=== PATIENT | male | born 1950 | race Hispanic/Latino ===

== ENCOUNTER 2020-12-12 10:02 | Inpatient (IN) | payer BC, MEDICARE ==
[2020-12-12 10:29] VITALS: BMI 32.3
[2020-12-12] MEDS ORDERED: Communication Order-Pharmacy FS ONE (12:24)
[2020-12-12] MEDS ORDERED: Diazepam 5 MG TAB PO PRN (12:24)
--- NOTE | 2020-12-12 12:51 | HP ---
REASON FOR ADMISSION: Multivessel coronary artery disease. HISTORY OF PRESENT ILLNESS: Mr. Kang is a very pleasant 70-year-old gentleman, who actually came to the office last month for preoperative evaluation. He was scheduled to have knee surgery on December 04. He voiced having to stop doing his treadmill run about 2 years ago, as he was starting to get more short of breath and did not like the sensation, so he eventually just stopped doing it. He states he gets short of breath with exertion. No chest pain, tightness, or pressure. He underwent an echocardiogram, which showed an EF of 45% to 50% with inferior hypokinesis. Otherwise, no major valvular abnormality. He also had a stress test, which showed inferior reversible defect with reduced EF, so his surgery was postponed and he was recommended to undergo heart catheterization. He underwent this procedure this morning through the right radial approach and he was found to have significant left main disease, ostial LAD, significant ostial left circumflex, and an occluded RPDA filling from [id number] collaterals. His LV function seemed to be about 50% on the LV Gram. Given the severity of his disease and the possibility of becoming unstable and the need for bypass surgery, he was transferred over as an inpatient to [place] for evaluation by Cardiothoracic Surgery and consideration of coronary artery bypass grafting. Mr. Kang currently denies any chest pain, tightness, pressure. PAST MEDICAL HISTORY: 1. Coronary artery disease, just newly diagnosed as above. 2. Hypertension. 3. Hyperlipidemia. PAST SURGICAL HISTORY: None. FAMILY HISTORY: Two brothers, four sisters, and two sons healthy. Mother and father both . SOCIAL HISTORY: No alcohol, tobacco, or drugs. ALLERGIES: NO KNOWN DRUG ALLERGIES. OUTPATIENT MEDICATIONS: 1. Amlodipine 5 mg a day. 2. Pravastatin 10 mg q.h.s. 3. Aspirin 81 a day. 4. Naproxen p.r.n. REVIEW OF SYSTEMS: A 12-point review of systems was done and was found to be negative other than stated in the History of Present Illness. PHYSICAL EXAMINATION: VITAL SIGNS: Temperature 97.2, pulse 74, respiratory rate 20, saturating 98% on room air, blood pressure 122/80. He is 5 feet 7 inches tall and he weighs 85 kg. GENERAL: Awake, alert, oriented x3, in no distress. HEENT: Normocephalic and atraumatic. NECK: Supple. LUNGS: Clear. CARDIOVASCULAR: S1, S2. No S3 or S4. No murmurs. ABDOMEN: Soft. Positive bowel sounds. EXTREMITIES: No edema. SKIN: Warm and dry. LABORATORY DATA: Laboratory work was reviewed. ASSESSMENT/PLAN: 1. Multivessel coronary artery disease. 2. Ischemic cardiomyopathy with an ejection fraction about 45% to 50%. 3. No major valvular abnormality and no history of atrial fibrillation. PLAN: 1. Continue home regimen. 2. Consult Cardiothoracic Surgery for consideration of coronary artery bypass grafting. 3. Lovenox subcu for DVT prophylaxis. 4. PPI for stress ulcer prophylaxis. 5. Disposition pending evaluation by surgery. 6. Full code. Job ID: [id number]
[2020-12-12 13:03] LABS: #Basophils 0.1 thou/uL (0.0-0.2); #Eosinphils 0.1 thou/uL (0.0-0.7); #Lymphocytes 1.4 thou/uL (1.20-3.40); #Monocytes 0.6 thou/uL (0.11-0.59); #Neutrophils 5.6 thou/uL (1.40-6.50); %Basophils 0.8 % (0.0-1.0); %Eosinophils 1.1 % (0.0-10.0); %Lymphocytes 18.4 % (21.0-51.0); %Monocytes 7.9 % (0.0-10.0); %Neutrophils 71.8 % (42.0-75.0); Hemoglobin 15.2 g/dL (14.0-18.0); Hemoglobin A1c 5.6 % (4.0-6.0); Mean Corpuscular HGB CONC 30.9 g/dL (32.0-36.0); Mean Corpuscular Hemoglobin 28.9 pg (27.0-31.0); Mean Corpuscular Volume 93.3 fL (78.0-98.0); Mean Platelet Volume 9.1 fL (7.4-10.4); Platelet Count 207 thou/uL (130-400); RBC Distribution Width 12.3 % (11.5-14.5); Red Blood Cell (RBC) Count 5.26 mill/uL (4.70-6.10); White Blood Cell (WBC) Count 7.7 thou/uL (4.8-10.8)
--- NOTE | 2020-12-12 13:05 | RAD ---
Exam: Chest one view HISTORY:Preprocedure chest radiograph. Patient is scheduled for open heart surgery. Comparison: 09/06/2016 FINDINGS: Cardiac silhouette: Normal Aorta: Unremarkable Pulmonary vessels: Normal Costophrenic angles: Clear LUNGS: No masses or consolidation. Pneumothorax: None Osseous abnormalities: None IMPRESSION: No acute cardiopulmonary process.
[2020-12-12 13:24] LABS: Anion Gap 13 mmol/L (10-20); BUN (Urea Nitrogen) 13 mg/dL (8.4-25.7); Calc. Creatinine Clearance 94 mL/min (70-130); Carbon Dioxide 25 mmol/L (23-31); Chloride 103 mmol/L (98-107); Glucose 106 mg/dL (80-115); Potassium 4.1 mmol/L (3.5-5.1); Sodium 137 mmol/L (136-145)
--- NOTE | 2020-12-12 13:41 | CON ---
DATE OF CONSULTATION: 12/12/2020 REASON FOR CONSULTATION: Evaluate the patient for coronary artery bypass grafting. CONSULTING PHYSICIAN: Ranjith Morrissey MD HISTORY OF PRESENT ILLNESS: Mr. Kang is a 70-year-old gentleman, who was seen for right knee pain and need right knee surgery. Preoperative clearance was requested from Dr. Morrissey. The patient had an abnormal EKG and subsequently underwent stress testing, which was again abnormal. He underwent cardiac catheterization today at the [facility] revealing critical left main disease with approximately 50% to 60% right coronary stenosis. He has collateralization of his posterolateral through his LAD. PDA is chronically occluded. Ejection fraction on ventriculogram is approximately 60%. PAST MEDICAL HISTORY: Hypertension. PAST SURGICAL HISTORY: None. CURRENT MEDICATIONS: 1. Naproxen 500 mg b.i.d. 2. Pravastatin 20 mg at bedtime. 3. Aspirin 81 mg daily. 4. Amlodipine 5 mg daily. ALLERGIES: NONE. SOCIAL HISTORY: He does not use tobacco. He is retired and plays a lot of golf. REVIEW OF SYSTEMS: A 10-point review of systems is performed, is negative except as above. PHYSICAL EXAMINATION: GENERAL: This is a well-developed, well-nourished male, resting comfortably on the telemetry unit. VITAL SIGNS: Height 5 feet and 6 inches and weight is 200 pounds. Temperature is 98.5, pulse is 61 and regular - he is in normal sinus rhythm on telemetry. Blood pressure is 170/79. HEENT: Sclerae nonicteric. Pupils equal and round bilaterally. NECK: Supple. He has no carotid bruit. He has no adenopathy. CHEST: Clear bilaterally. HEART: Rhythm is regular without murmur. ABDOMEN: Soft and nontender. EXTREMITIES: No edema. VASCULAR: Palpable carotid, radial, femoral, and posterior tibial pulses bilaterally. VENOUS: There is no venous varicosities or venous stasis changes. PSYCHIATRIC: He is awake, alert, and oriented to person, place, and time. ASSESSMENT AND PLAN: This is a pleasant 70-year-old gentleman with critical left main stenosis. He also has some stenosis in his right coronary with an occluded PDA. I never ever see the PDA fill on his films. Posterolateral and distal right coronary artery are bypassable targets. Risks, benefits, and options to coronary artery bypass grafting was discussed with him. Target bypass included left anterior descending, obtuse marginal, and distal right. Job ID: [id number]
[2020-12-12 17:26] LABS: SARS-CoV-2 MS2 Positive; SARS-CoV-2 N Gene Negative; SARS-CoV-2 S Gene Negative; SARS-CoV-2 by NAA Not Detected (NotDetected); SARS-CoV-2 orf1ab Negative
[2020-12-12] MEDS ORDERED: Simvastatin 10 MG TAB PO SCH (21:00)
[2020-12-13] MEDS ORDERED: Bupivacaine PF 0.5% 30 ML VIAL ONE (06:34)
[2020-12-13] MEDS ORDERED: EPINEPHrine 1 MG/ML AMP ONE (06:34)
[2020-12-13] MEDS ORDERED: Dexamethasone 4 mg/ml Vial ONE (06:34)
[2020-12-13] MEDS ORDERED: Albumin 5% 500 ML ONE (06:34)
[2020-12-13] MEDS ORDERED: Heparin 10,000 UNITS/1 ML VIAL 30,000 UNITS in Sodium Chloride 0.9% 1,000 ML FS SCH (06:45)
[2020-12-13] MEDS ORDERED: Midazolam HCl 5 mg/5 ml Vial ONE (06:50)
[2020-12-13] MEDS ORDERED: Fentanyl 250 MCG/5 ML VIAL ONE (06:50)
[2020-12-13] MEDS ORDERED: Dexmedetomidine 200 MCG/2 ML VIAL ONE (06:50)
[2020-12-13] MEDS ORDERED: Midazolam HCl 2 mg/2 ml Vial ONE (07:12)
[2020-12-13] MEDS ORDERED: Ondansetron ODT 4 MG TAB ONE (07:12)
[2020-12-13] MEDS ORDERED: CEFAZOLIN 2 GM in Premix Bag 1 BAG IVPB SCH (07:30)
[2020-12-13] MEDS ORDERED: Aspirin Chewable 81 MG TAB PO SCH (09:00)
[2020-12-13] MEDS ORDERED: Amlodipine 5 MG TAB PO SCH (09:00)
[2020-12-13] MEDS ORDERED: Insulin Regular 300 UNITS/3 ML VIAL ONE (09:57)
--- NOTE | 2020-12-13 11:44 | OP ---
DATE OF PROCEDURE: 12/13/2020 PREOPERATIVE DIAGNOSES: Coronary artery disease/hypertension/dyslipidemia. POSTOPERATIVE DIAGNOSES: Coronary artery disease/hypertension/dyslipidemia. PROCEDURES: Coronary artery bypass grafting x3, 1. Left internal mammary artery to 2.0 mm LAD, good conduit and target. 2. Reverse saphenous vein to 2.0 mm OM, good conduit and target. 3. Reverse saphenous vein to 4.0 mm RCA, good conduit and target. INCUBATOR OPERATOR: Clayton Siddiqui MD ANESTHESIA: General endotracheal, Dr. Faizan Bhat. PUMP TIME: 50 minutes. CROSS-CLAMP TIME: 29 minutes. LOW-CORE TEMPERATURE: 34 degrees Celsius. MEDICAL OFFICE ASST: Ashtyn Church. DRAINS: 24-Congolese chest tubes x2. DRIPS: None. TRANSFUSIONS: None. DESCRIPTION OF PROCEDURE: After appropriate consent was obtained, the patient was brought to the operating room and placed in supine position on the operating table. Appropriate central line and monitors were placed and general endotracheal anesthesia was induced. Chest, abdomen, and legs were prepped and draped in usual sterile fashion. Greater saphenous vein was harvested from the left thigh utilizing endoscopic technique. Wounds were irrigated and closed in layers. Median sternotomy was performed. Left internal mammary artery was harvested as a pedicle graft. The patient was systemically heparinized. Distal pedicle was divided and infused with papaverine. Thymic fat and pericardium were divided with electrocautery. Pericardial stay sutures were placed. Aortic and atrial cannulation was performed. After adequate heparinization, retrograde prime was performed. The patient was placed on cardiopulmonary bypass. Distal targets were marked. Aortic cross-clamp was applied and antegrade sanguineous cardioplegic arrest was obtained. 1 L of antegrade cold [place] cardioplegia was given. Topical cold solution was used. Reverse saphenous vein was anastomosed to distal RCA in end-to-side fashion with running 7-0 Prolene suture. Anastomosis was tested and was hemostatic. Reverse saphenous vein was anastomosed to the OM in end-to-side fashion with running 7-0 Prolene suture. Anastomosis was tested and was hemostatic. Mammary artery was brought through a window in the pericardium and anastomosed to the proximal LAD. On release of mammary clamps, good hooding of the anastomosis and good distal flow. Pedicle was secured with interrupted 6-0 Prolene suture. Cross-clamp was removed and partial occluding clamp was placed. Saphenous veins were anastomosed to individual punch sites in the aorta with running 6-0 Prolene suture. Partial occluding clamp was removed and graft was deaired. Anastomoses were inspected for hemostasis, which was good. The patient was warmed and weaned from cardiopulmonary bypass. After resumption of sinus rhythm, good hemodynamics, and temperature greater than 36.5, bypass was discontinued. Transfusion was given. 24-Congolese chest tubes were placed in the mediastinum. Decannulation was performed and pursestring suture secured. Protamine was administered. After adequate hemostasis had been obtained, sternum was treated with Vancomycin paste. The sternum was then closed with #7 wire. Sternum was treated withplatelet-rich plasma, wires were twisted and buried. Wounds were irrigated and treated with platelet poor plasma and closed in multiple layers. Needle, sponge, and instrument counts were all reported as correct at the end of the procedure. The patient tolerated the procedure well, was awakened, extubated, and transferred to the intensive care unit in stable condition. Job ID: [id number] [facility]
[2020-12-13] MEDS ORDERED: Aminocaproic Acid 5 GM/20 ML VIAL ONE (12:14)
[2020-12-13] MEDS ORDERED: Ondansetron PF 4 MG/2 ML Vial ONE (12:14)
[2020-12-13] MEDS ORDERED: Thrombin 5000 UNITS/5 ML VIAL ONE (12:14)
[2020-12-13] MEDS ORDERED: Lidocaine 1% PF 5 ML VIAL ONE (12:14)
[2020-12-13] MEDS ORDERED: Heparin 30,000 units/30 ml VIAL ONE (12:14)
[2020-12-13] MEDS ORDERED: Lidocaine 2% PF 100 mg/5 ml Syringe ONE (12:14)
[2020-12-13] MEDS ORDERED: Vecuronium 10 MG VIAL ONE (12:14)
[2020-12-13] MEDS ORDERED: Nitroglycerin 50 MG/250 ML BOT ONE (12:14)
[2020-12-13] MEDS ORDERED: Glycopyrrolate 0.2 MG/ML 5 ML SYRINGE ONE (12:14)
[2020-12-13] MEDS ORDERED: Cardioplegic Soln 1,000 ML BAG ONE (12:14)
[2020-12-13] MEDS ORDERED: Potassium Chloride 60 MEQ/30 ML VIAL ONE (12:14)
[2020-12-13] MEDS ORDERED: Magnesium Sulfate 1 GM/2 ML VIAL ONE (12:14)
[2020-12-13] MEDS ORDERED: Sodium Bicarb 50 MEQ/50 ML Abboject 8.4% SYRINGE ONE (12:14)
[2020-12-13] MEDS ORDERED: PROPOFOL 200 MG/20 ML VIAL ONE (12:14)
[2020-12-13] MEDS ORDERED: Heparin 5,000 UNITS/ML VIAL ONE (12:14)
[2020-12-13] MEDS ORDERED: Norepinephrine 4 MG/4 ML VIAL ONE (12:14)
[2020-12-13] MEDS ORDERED: Papaverine 60 MG/2 ML VIAL ONE (12:14)
[2020-12-13] MEDS ORDERED: Protamine Sulfate 250 MG/25 ML VIAL ONE (12:14)
[2020-12-13] MEDS ORDERED: Dexamethasone 20 MG/5 ML VIAL ONE (12:14)
[2020-12-13] MEDS ORDERED: Mannitol 12.5 GM/50 ML ONE (12:14)
[2020-12-13] MEDS ORDERED: Calcium Chloride 1 GM/10 ML Abboject SYRINGE ONE (12:14)
[2020-12-13] MEDS ORDERED: Potassium Chloride 20 MEQ/100 ML PREMIX BAG IVPB PRN (12:17)
[2020-12-13] MEDS ORDERED: Fentanyl 100 MCG/2 ML VIAL SLOW IVP PRN ×2 (12:17)
[2020-12-13] MEDS ORDERED: Morphine 2 MG/ML VIAL SLOW IVP PRN (12:17)
[2020-12-13] MEDS ORDERED: Ondansetron PF 4 MG/2 ML Vial IVP PRN (12:17)
[2020-12-13] MEDS ORDERED: HYDROcodone/Acetaminophen 5/325 mg Tablet PO PRN (12:17)
[2020-12-13] MEDS ORDERED: Bisacodyl 5 MG TAB PO PRN (12:17)
[2020-12-13] MEDS ORDERED: D5 1/2 NS w/20 mEq KCL 1,000 ML IV SCH (12:17)
[2020-12-13] MEDS ORDERED: Promethazine HCl 25 MG/ML VIAL IM PRN (12:17)
[2020-12-13] MEDS ORDERED: Guaifenesin DM 100-10/5 ML UDCUP PO PRN (12:17)
[2020-12-13] MEDS ORDERED: Nitroglycerin 50 MG/250 ML BOT 250 ML IVPB PRN (12:17)
[2020-12-13] MEDS ORDERED: Hetastarch 6% 500 ML 500 ML IVPB PRN (12:17)
[2020-12-13] MEDS ORDERED: hydrALAZINE 20 MG/ML VIAL SLOW IVP PRN (12:17)
[2020-12-13] MEDS ORDERED: Acetaminophen 325 MG TAB PO PRN (12:17)
[2020-12-13] MEDS ORDERED: Bisacodyl 10 MG SUPP PR PRN (12:17)
[2020-12-13] MEDS ORDERED: Mag-Al 1200 mg/1200 mg/30 ML UDCUP PO PRN (12:17)
[2020-12-13] MEDS ORDERED: Phenylephrine 40 MG in Sodium Chloride 0.9% 250 ML 250 ML IVPB PRN (12:17)
[2020-12-13] MEDS ORDERED: Magnesium 2 GM/50 ML 2 GM in Premix Bag 1 BAG IVPB SCH (12:30)
[2020-12-13 12:36] LABS: INR-International Normal Ratio 1.4; PTT 29.7 sec (22.9-36.1); Prothrombin Time 17.3 sec (12.0-14.7)
[2020-12-13 12:37] LABS: Hemoglobin 12.8 g/dL (14.0-18.0); Mean Corpuscular HGB CONC 32.7 g/dL (32.0-36.0); Mean Corpuscular Hemoglobin 30.5 pg (27.0-31.0); Mean Corpuscular Volume 93.3 fL (78.0-98.0); Red Blood Cell (RBC) Count 4.19 mill/uL (4.70-6.10); White Blood Cell (WBC) Count 20.4 thou/uL (4.8-10.8)
--- NOTE | 2020-12-13 12:38 | RAD ---
XR Chest 1 View Portable HISTORY: Postop open heart surgery COMPARISON: Previous day FINDINGS: Interval postoperative changes of median sternotomy are seen. Mediastinal and left chest tu bes are present. There is atelectatic change at the left lung base and probable small left effusion. No pneumothoraces are noted. There is a right subclavian central line with tip in the proje ction of the right atrium. There is a mild opacity/infiltrate in the right medial lung base.
[2020-12-13] MEDS: Insulin Regular 300 UNITS/3 ML VIAL SC PRN ×3 (12:44→22:30)
[2020-12-13] MEDS ORDERED: Dextrose 50% Abboject 50 ML SYRINGE SLOW IVP PRN (12:45)
[2020-12-13] MEDS ORDERED: Dextrose 5% in Water 1,000 ML IV PRN (12:45)
[2020-12-13 12:54] LABS: Band 34 % (5-11); Lymphocytes 3 % (21-51); MDiff Complete? YES; Mean Platelet Volume 9.9 fL (7.4-10.4); Metamyelocyte 2 % (0-0); Monocytes 2 % (0-10); Neutrophil 52 % (42-75); Platelet Count 122 thou/uL (130-400); Platelet Morphology Comment Appears Decreased; Polychromasia SLIGHT = 2-3 cells (100X) (0-2/hpf); RBC Distribution Width 12.3 % (11.5-14.5); Reactive Lymphocytes 7 % (0-10)
[2020-12-13 13:02] LABS: Anion Gap 14 mmol/L (10-20); BUN (Urea Nitrogen) 13 mg/dL (8.4-25.7); Calc. Creatinine Clearance 105 mL/min (70-130); Calcium 7.2 mg/dL (7.8-10.44); Carbon Dioxide 19 mmol/L (23-31); Chloride 109 mmol/L (98-107); Glucose 111 mg/dL (80-115); Sodium 138 mmol/L (136-145)
--- NOTE | 2020-12-13 13:16 | PDOC.CPN ---
- Subjective Date: 12/13/20 Time: 13:14 Interval history: He had his surgery earlier today and did well. He is now extubated. Sore but still not fully awake. - Review of Systems ROS unobtainable: due to mental status - Objective Allergies/Adverse Reactions: Allergies Allergy/AdvReac Type Severity Reaction Status Date / Time No Known Allergies Allergy Verified 12/12/20 10:19 Visit Medications: Current Medications Acetaminophen (Acetaminophen 325 Mg Tab) 650 mg PO Q6H PRN PRN Reason: Headache/Fever Or Mild Pain Hydrocodone Bitart/Acetaminophen (Hydrocodone/Acetaminophen 5/325 Mg Tablet) 1 tab PO Q4H PRN PRN Reason: Moderate Pain (4-6) Hydrocodone Bitart/Acetaminophen (Hydrocodone/Acetaminophen 5/325 Mg Tablet) 2 tab PO Q4H PRN PRN Reason: Severe Pain (7-10) Al Hydroxide/Mg Hydroxide (Mag-Al 1200 Mg/1200 Mg/30 Ml Udcup) 30 ml PO Q4H PRN PRN Reason: Indigestion Albumin Human (Albumin 5% 12.5 Gm/250 Ml Bot) 12.5 gm IVPB Q6H PRN PRN Reason: To Maintain SBP> 90 mmHG Stop: 12/14/20 12:18 Albumin Human (Albumin 5% 12.5 Gm/250 Ml Bot) 25 gm IVPB Q6H PRN PRN Reason: To Maintain SBP > 90 mmHG Stop: 12/14/20 12:18 Albuterol/Ipratropium (Ipratropium/Albuterol Sulfate 3 Ml Neb) 3 ml NEB [id number] PRN PRN Reason: SOB Aspirin (Aspirin 325 Mg Tab) 325 mg PO DAILY ANDREWS Atorvastatin Calcium (Atorvastatin Calcium 20 Mg Tab) 20 mg PO HS ANDREWS Bisacodyl (Bisacodyl 5 Mg Tab) 10 mg PO Q12H PRN PRN Reason: Constipation Bisacodyl (Bisacodyl 10 Mg Supp) 10 mg ID Q12H PRN PRN Reason: Constipation Dextrose/Water (Dextrose 50% Abboject 50 Ml Syringe) 25 gm SLOW IVP PRN PRN PRN Reason: PER HYPOGLYCEMIC PROTOCOL Famotidine (Famotidine/Pf 20 Mg/2ml Vial) 20 mg SLOW IVP Q12HR ANDREWS Fentanyl (Fentanyl 100 Mcg/2 Ml Vial) 25 mcg SLOW IVP Q2H PRN PRN Reason: Moderate Pain (4-6) Stop: 12/15/20 12:14 Fentanyl (Fentanyl 100 Mcg/2 Ml Vial) 50 mcg SLOW IVP Q2H PRN PRN Reason: Severe Pain (7-10) Stop: 12/15/20 12:14 Glucagon (Glucagon 1 Mg/Ml Vial) 1 mg SC PRN PRN PRN Reason: PER HYPOGLYCEMIC PROTOCOL Guaifenesin/Dextromethorphan (Guaifenesin Dm 100-10/5 Ml Udcup) 15 ml PO Q4H PRN PRN Reason: Cough Hydralazine HCl (Hydralazine 20 Mg/Ml Vial) 10 mg SLOW IVP Q6H PRN PRN Reason: To Maintain SBP< 140mmHG Hetastarch/Sodium Chloride (Hespan) 500 mls @ 0 mls/hr IVPB PRN PRN PRN Reason: To Maintain SBP > 90mmHg Stop: 12/14/20 12:14 Nitroglycerin/Dextrose (Nitroglycerin 50 Mg/250 Ml Bot) 250 mls @ 0 mls/hr IVPB PRN PRN; Protocol PRN Reason: To Maintain SBP< 140mmHG Potassium Chloride/Dextrose/Sod Cl (D5 1/2 Ns W/20 Meq Kcl) 1,000 mls @ 40 mls/hr IV .Q24H [facility] Last Admin: 12/13/20 12:37 Dose: 1,000 mls Documented by: Cefazolin Sodium/Dextrose 2 gm (/ Device) 50 mls @ 100 mls/hr IVPB Q8HR [facility] Stop: 12/14/20 06:29 Magnesium Sulfate 2 gm/ Device 50 mls @ 50 mls/hr IVPB NOW [facility] Stop: 12/13/20 14:30 Last Admin: 12/13/20 12:48 Dose: 50 mls Documented by: Magnesium Sulfate 2 gm/ Device 50 mls @ 50 mls/hr IVPB QAM [facility] Stop: 12/15/20 09:59 Phenylephrine HCl 40 mg/ (Sodium Chloride) 254 mls @ 0 mls/hr IVPB INF PRN; Protocol PRN Reason: To maintain SBP > 90 mmHG Dextrose/Water (D5w) 1,000 mls @ 0 mls/hr IV INF PRN PRN Reason: PRN HYPOGLYCEMIC PROTOCOL Insulin Human Regular (Insulin Regular 300 Units/3 Ml Vial) 0 units SC Q4H PRN; Protocol PRN Reason: POST OP SLIDING SCALE Last Admin: 12/13/20 12:44 Dose: 2 unit Documented by: Ketorolac Tromethamine (Ketorolac Tromethamine 30 Mg/Ml Vial) 30 mg IVP Q6HR ANDREWS Stop: 12/16/20 18:01 Morphine Sulfate (Morphine 2 Mg/Ml Vial) 2 mg SLOW IVP Q15MIN PRN PRN Reason: Severe Pain (7-10) Ondansetron HCl (Ondansetron Pf 4 Mg/2 Ml Vial) 4 mg IVP Q6H PRN PRN Reason: Nausea/Vomiting Potassium Chloride (Potassium Chloride 20 Meq/100 Ml Premix Bag) 20 meq IVPB PRN PRN PRN Reason: K level </= 4.0 Promethazine HCl (Promethazine Hcl 25 Mg/Ml Vial) 6.25 mg IM Q4H PRN PRN Reason: Nausea/Vomiting Sodium Chloride (Flush - Normal Saline 10 Ml Syringe) 10 ml IVF PRN PRN PRN Reason: Saline Flush Vital Signs & Weight: Vital Signs Temp Pulse Resp BP Pulse Ox 12/13/20 04:00 97.9 F 62 18 172/83 H 96 Weight 200 lb - Physical Exam General: alert & oriented x3 HEENT: mucus membranes moist Neck: supple neck Cardiac: regular rate and rhythm Lungs: clear to auscultation Neuro: grossly intact Abdomen: active bowel sounds Extremities: no edema Skin: clear Musculoskeletal: normal range of motion - Labs Result Diagrams: 12/13/20 11:19 12/13/20 11:19 - Telemetry Sinus rhythms and dysrhythmias: sinus rhythm - Assessment/Plan Assessment/Plan: 1. Multivessel CAD. 2. S/P CABG x 3 MENDES to LAD, SVG to OM, SVG to RCA. 3. HTN 4. HLP PLAN: - Continue post op care. - ASA/Statin for life - BB and ACEI as BP allow - PT once tolerated.
[2020-12-13] MEDS: CEFAZOLIN 2 GM in Premix Bag 1 BAG IVPB SCH ×2 (14:00→21:46)
[2020-12-13] MEDS: Ketorolac Tromethamine 30 MG/ML VIAL IVP SCH (17:05)
[2020-12-13 17:13] LABS: Glucose 194 mg/dL (80-115)
[2020-12-13 18:18] LABS: Hemoglobin 13.6 g/dL (14.0-18.0)
[2020-12-13 18:43] LABS: Potassium 4.5 mmol/L (3.5-5.1)
[2020-12-13] MEDS ORDERED: Atorvastatin Calcium 20 MG TAB PO SCH (21:00)
[2020-12-13] MEDS ORDERED: Famotidine/PF 20 mg/2ml Vial SLOW IVP SCH (21:00)
[2020-12-13] MEDS: HYDROcodone/Acetaminophen 5/325 mg Tablet PO PRN (21:53)
[2020-12-14] MEDS: Ketorolac Tromethamine 30 MG/ML VIAL IVP SCH ×4 (01:03→17:16)
[2020-12-14] MEDS: CEFAZOLIN 2 GM in Premix Bag 1 BAG IVPB SCH (05:25)
[2020-12-14] MEDS: HYDROcodone/Acetaminophen 5/325 mg Tablet PO PRN (05:26)
[2020-12-14 05:37] LABS: #Lymphocytes 0.9 thou/uL (1.20-3.40); #Monocytes 1.2 thou/uL (0.11-0.59); #Neutrophils 14.1 thou/uL (1.40-6.50); %Basophils 0.1 % (0.0-1.0); %Lymphocytes 5.6 % (21.0-51.0); %Monocytes 7.3 % (0.0-10.0); %Neutrophils 86.9 % (42.0-75.0); Hemoglobin 12.7 g/dL (14.0-18.0); Mean Corpuscular Hemoglobin 30.6 pg (27.0-31.0); Mean Corpuscular Volume 92.8 fL (78.0-98.0); Mean Platelet Volume 9.5 fL (7.4-10.4); Platelet Count 150 thou/uL (130-400); RBC Distribution Width 12.3 % (11.5-14.5); Red Blood Cell (RBC) Count 4.15 mill/uL (4.70-6.10); White Blood Cell (WBC) Count 16.2 thou/uL (4.8-10.8)
[2020-12-14 06:45] LABS: Glucose 138 mg/dL (80-115)
[2020-12-14 06:49] LABS: Anion Gap 14 mmol/L (10-20); BUN (Urea Nitrogen) 13 mg/dL (8.4-25.7); Calc. Creatinine Clearance 97 mL/min (70-130); Calcium 8.1 mg/dL (7.8-10.44); Carbon Dioxide 23 mmol/L (23-31); Chloride 106 mmol/L (98-107); Glucose 138 mg/dL (80-115); Potassium 4.6 mmol/L (3.5-5.1); Sodium 138 mmol/L (136-145)
[2020-12-14] MEDS ORDERED: traMADol HCl 50 MG TAB PO PRN ×4 (07:59→11:40)
--- NOTE | 2020-12-14 08:03 | RAD ---
EXAM: Single view of the chest HISTORY: Status post open heart surgery COMPARISON: 12/14/2020 FINDINGS: Single view of the chest shows an enlarged cardiomediastinal silhouette. The patient is st atus post sternotomy. The lines and tubes are unchanged in position. There appears to be a small stable left pleural effusion. No pneumothorax is seen. IMPRESSION: Stable exam
[2020-12-14] MEDS ORDERED: Mineral Oil ENEMA PR PRN (08:33)
[2020-12-14] MEDS ORDERED: diphenhydrAMINE 25 MG CAP PO PRN (08:33)
[2020-12-14] MEDS ORDERED: Mag-Al 1200 mg/1200 mg/30 ML UDCUP PO PRN (08:33)
[2020-12-14] MEDS ORDERED: Nitroglycerin 0.4 MG TAB (25 Tab Bottle) SL PRN (08:33)
[2020-12-14] MEDS ORDERED: Milk Of Magnesia 30 ML UDCUP PO PRN (08:33)
[2020-12-14] MEDS ORDERED: Bisacodyl 10 MG SUPP PR PRN (08:33)
[2020-12-14] MEDS ORDERED: Bisacodyl 5 MG TAB PO PRN (08:33)
[2020-12-14] MEDS ORDERED: Guaifenesin DM 100-10/5 ML UDCUP PO PRN (08:33)
[2020-12-14] MEDS ORDERED: Amlodipine 5 MG TAB PO SCH (09:00)
[2020-12-14] MEDS ORDERED: Aspirin 325 MG TAB PO SCH (09:00)
[2020-12-14] MEDS: Magnesium 2 GM/50 ML 2 GM in Premix Bag 1 BAG IVPB SCH (09:42)
[2020-12-14] MEDS: Furosemide 40 MG TAB PO SCH (09:43)
[2020-12-14] MEDS: Aspirin 325 mg Enteric Coated Tablet PO SCH (09:44)
--- NOTE | 2020-12-14 11:40 | PDOC.CPN ---
- Subjective Date: 12/14/20 Time: 11:38 Interval history: He is doing very well. He walked 4 times already around the ICU and felt well doing so. passing gas, No BM yet. - Review of Systems General: denies: fever/chills, weight/appetite/sleep changes, night sweats, fatigue Respiratory: denies: cough, congestion, shortness of breath, exercise intolerance Cardiovascular: denies: chest pain, palpitation, edema, paroxysmal nocturnal dyspnea, orthopnea Gastrointestinal: denies: nausea, vomiting, diarrhea, constipation, abd pain, GI bleeding Musculoskeletal: denies: pain, tenderness, stiffness, swelling, arthritis/arthralgias Neurological: denies: numbness, syncope, seizure, weakness - Objective Allergies/Adverse Reactions: Allergies Allergy/AdvReac Type Severity Reaction Status Date / Time No Known Allergies Allergy Verified 12/12/20 10:19 Visit Medications: Current Medications Acetaminophen (Acetaminophen 325 Mg Tab) 650 mg PO Q6H PRN PRN Reason: Headache/Fever Or Mild Pain Al Hydroxide/Mg Hydroxide (Mag-Al 1200 Mg/1200 Mg/30 Ml Udcup) 30 ml PO Q4H PRN PRN Reason: Indigestion Albuterol/Ipratropium (Ipratropium/Albuterol Sulfate 3 Ml Neb) 3 ml NEB [id number] PRN PRN Reason: SOB Amlodipine Besylate (Amlodipine 5 Mg Tab) 5 mg PO DAILY [facility] Last Admin: 12/14/20 09:42 Dose: 5 mg Documented by: Aspirin (Aspirin 325 Mg Enteric Coated Tablet) 325 mg PO DAILY [facility] Last Admin: 12/14/20 09:44 Dose: 325 mg Documented by: Atorvastatin Calcium (Atorvastatin Calcium 40 Mg Tab) 40 mg PO [facility] Bisacodyl (Bisacodyl 5 Mg Tab) 10 mg PO Q12H PRN PRN Reason: Constipation Bisacodyl (Bisacodyl 10 Mg Supp) 10 mg NE Q12H PRN PRN Reason: Constipation Diphenhydramine HCl (Diphenhydramine 25 Mg Cap) 25 mg PO Q6H PRN PRN Reason: Itching & Insomnia or Hiren Daniel Fentanyl (Fentanyl 100 Mcg/2 Ml Vial) 25 mcg SLOW IVP Q2H PRN PRN Reason: Moderate Pain (4-6) Stop: 12/15/20 12:14 Fentanyl (Fentanyl 100 Mcg/2 Ml Vial) 50 mcg SLOW IVP Q2H PRN PRN Reason: Severe Pain (7-10) Stop: 12/15/20 12:14 Furosemide (Furosemide 40 Mg Tab) 40 mg PO DAILY [facility] Last Admin: 12/14/20 09:43 Dose: 40 mg Documented by: Guaifenesin/Dextromethorphan (Guaifenesin Dm 100-10/5 Ml Udcup) 15 ml PO Q4H PRN PRN Reason: Cough Guaifenesin/Dextromethorphan (Guaifenesin Dm 100-10/5 Ml Udcup) 15 ml PO Q4H PRN PRN Reason: Cough Hydralazine HCl (Hydralazine 20 Mg/Ml Vial) 10 mg SLOW IVP Q6H PRN PRN Reason: To Maintain SBP< 140mmHG Nitroglycerin/Dextrose (Nitroglycerin 50 Mg/250 Ml Bot) 250 mls @ 0 mls/hr IVPB PRN PRN; Protocol PRN Reason: To Maintain SBP< 140mmHG Magnesium Sulfate 2 gm/ Device 50 mls @ 50 mls/hr IVPB QAM [facility] Stop: 12/15/20 09:59 Last Admin: 12/14/20 09:42 Dose: 50 mls Documented by: Ketorolac Tromethamine (Ketorolac Tromethamine 30 Mg/Ml Vial) 30 mg IVP Q6HR [facility] Stop: 12/16/20 18:01 Last Admin: 12/14/20 11:35 Dose: 30 mg Documented by: Magnesium Hydroxide (Milk Of Magnesia 30 Ml Udcup) 30 ml PO Q12H PRN PRN Reason: Constipation Metoprolol Succinate (Metoprolol Succinate Xl 25 Mg Tab) 25 mg PO DAILY [facility] Last Admin: 12/14/20 09:44 Dose: 25 mg Documented by: Mineral Oil (Mineral Oil Enema) 133 ml NE DAILYPRN PRN PRN Reason: Constipation Nitroglycerin (Nitroglycerin 0.4 Mg Tab (25 Tab Bottle)) 0.4 mg SL Q5MIN PRN PRN Reason: Chest Pain Ondansetron HCl (Ondansetron Pf 4 Mg/2 Ml Vial) 4 mg IVP Q6H PRN PRN Reason: Nausea/Vomiting Pantoprazole Sodium (Pantoprazole 40 Mg Tab) 40 mg PO DAILY [facility] Last Admin: 12/14/20 09:44 Dose: 40 mg Documented by: Potassium Chloride (Potassium Chloride 20 Meq/100 Ml Premix Bag) 20 meq IVPB PRN PRN PRN Reason: K level </= 4.0 Last Admin: 12/13/20 15:37 Dose: 20 meq Documented by: Potassium Chloride (Potassium Chloride 10 Meq Tab) 10 meq PO QAM-WM ANDREWS Sodium Chloride (Flush - Normal Saline 10 Ml Syringe) 10 ml IVF PRN PRN PRN Reason: Saline Flush Tramadol HCl (Tramadol Hcl 50 Mg Tab) 50 mg PO Q12H PRN PRN Reason: Moderate Pain (4-6) Tramadol HCl (Tramadol Hcl 50 Mg Tab) 100 mg PO Q12H PRN PRN Reason: Severe Pain (7-10) Zolpidem Tartrate (Zolpidem Tartrate 5 Mg Tab) 5 mg PO HSPRN PRN PRN Reason: Insomnia Vital Signs & Weight: Vital Signs Temp Pulse BP Pulse Ox 12/14/20 09:42 72 129/72 12/14/20 08:00 98.0 F 12/14/20 07:51 95 12/14/20 07:12 94 L 12/14/20 04:00 97.9 F 12/14/20 00:00 95 Weight 195 lb 5.273 oz - Physical Exam General: alert & oriented x3 HEENT: mucus membranes moist Neck: supple neck Cardiac: regular rate and rhythm Lungs: normal breath sounds Neuro: grossly intact Abdomen: active bowel sounds Extremities: no edema Skin: clear Musculoskeletal: no pain - Labs Result Diagrams: 12/14/20 05:20 12/14/20 05:20 - Telemetry Sinus rhythms and dysrhythmias: sinus rhythm - Assessment/Plan Assessment/Plan: 1. Multivessel CAD. 2. S/P CABG x 3 MENDES to LAD, SVG to OM, SVG to RCA. 3. HTN 4. HLP PLAN: - ASA/Statin for life - On low dose BB. - Will stop home amlodipine to make space for ACEI. - Increase PT as tolerated.
[2020-12-14] MEDS: Atorvastatin Calcium 40 MG TAB PO SCH (20:17)
[2020-12-15] MEDS: Ketorolac Tromethamine 30 MG/ML VIAL IVP SCH ×5 (00:05→23:27)
[2020-12-15] MEDS: Zolpidem Tartrate 5 MG TAB PO PRN ×2 (01:35→21:14)
[2020-12-15] MEDS: Lisinopril 2.5 MG TAB PO SCH (09:48)
[2020-12-15] MEDS: Potassium Chloride 10 MEQ TAB PO SCH (09:48)
[2020-12-15] MEDS: Aspirin 325 mg Enteric Coated Tablet PO SCH (09:48)
[2020-12-15] MEDS: Furosemide 40 MG TAB PO SCH (09:48)
[2020-12-15] MEDS: Magnesium 2 GM/50 ML 2 GM in Premix Bag 1 BAG IVPB SCH (09:49)
[2020-12-15] MEDS: Atorvastatin Calcium 40 MG TAB PO SCH (21:14)
[2020-12-16] MEDS: Ketorolac Tromethamine 30 MG/ML VIAL IVP SCH ×3 (06:09→17:17)
[2020-12-16] MEDS: Potassium Chloride 10 MEQ TAB PO SCH (08:17)
[2020-12-16] MEDS: Furosemide 40 MG TAB PO SCH (08:17)
[2020-12-16] MEDS: Aspirin 325 mg Enteric Coated Tablet PO SCH (08:18)
[2020-12-16] MEDS: Lisinopril 2.5 MG TAB PO SCH (08:18)
[2020-12-16] MEDS: Zolpidem Tartrate 5 MG TAB PO PRN (20:25)
[2020-12-16] MEDS: Atorvastatin Calcium 40 MG TAB PO SCH (20:25)
[2020-12-17] MEDS: Lisinopril 2.5 MG TAB PO SCH (08:40)
[2020-12-17] MEDS: Aspirin 325 mg Enteric Coated Tablet PO SCH (08:40)
[2020-12-17] MEDS: Potassium Chloride 10 MEQ TAB PO SCH (08:40)
[2020-12-17] MEDS: Furosemide 40 MG TAB PO SCH (08:40)
[2020-12-17 11:35] VITALS: TEMP 97.6
[2020-12-17 12:17] VITALS: BP 189/83
[2020-12-18 14:40] LABS: Actual Bicarbonate (HCO3a) 23.2 mEq/L (22-28); Analyzer IN Cardio OR; Base Excess (BEa) -0.9 mEq/L (-2.0 to +3.0); CO2 Tension 36.7 mmHg (35.0-45.0); Calcium, Ionized (arterial) 1.14 mmol/L (1.12-1.30); Carboxyhemoglobin (COHb) 0.7 gm% (0.0-3.0); Hemoglobin (Hb) 14.7 g/dL (14.0-18.0); O2 Tension (PaO2), arterial 387.2 mmHg (> 80.0); Potassium - ABG Lab 4.04 mmol/L (3.70-5.30); pH, Arterial 7.42 (7.35-7.45)
[2020-12-18 14:41] LABS: Actual Bicarbonate (HCO3v) 22 mEq/L (22-28); Analyzer IN Cardio OR; Base Excess -3.7 mEq/L (-2.0 to +3.0); Calcium, Ionized (venous) 1.02 mmol/L (1.16-1.32); Chloride (VBG) 104 mmol/L (98-106); Hemoglobin (Hb) 10.9 g/dL (12.6-17.4); Potassium (VBG) 4.44 mmol/L (3.70-5.30); Sodium 131.7 mmol/L (133-146); pH (venous) 7.34 (7.32-7.43)
[2020-12-18 14:41] LABS: Actual Bicarbonate (HCO3a) 24.2 mEq/L (22-28); Analyzer IN Cardio OR; Base Excess (BEa) -0.9 mEq/L (-2.0 to +3.0); CO2 Tension 42.1 mmHg (35.0-45.0); Calcium, Ionized (arterial) 1.11 mmol/L (1.12-1.30); Carboxyhemoglobin (COHb) 0.8 gm% (0.0-3.0); O2 Tension (PaO2), arterial 310.1 mmHg (> 80.0); Potassium - ABG Lab 3.98 mmol/L (3.70-5.30); pH, Arterial 7.38 (7.35-7.45)
[2020-12-18 14:41] LABS: Actual Bicarbonate (HCO3a) 22.3 mEq/L (22-28); Analyzer IN Cardio OR; CO2 Tension 40.9 mmHg (35.0-45.0); Calcium, Ionized (arterial) 1.03 mmol/L (1.12-1.30); Carboxyhemoglobin (COHb) 0.2 gm% (0.0-3.0); Hemoglobin (Hb) 11.3 g/dL (14.0-18.0); O2 Tension (PaO2), arterial 410.1 mmHg (> 80.0); Potassium - ABG Lab 4.49 mmol/L (3.70-5.30); pH, Arterial 7.36 (7.35-7.45)
[2020-12-18 14:42] LABS: Actual Bicarbonate (HCO3a) 22.4 mEq/L (22-28); Analyzer IN Cardio OR; Base Excess (BEa) -3.2 mEq/L (-2.0 to +3.0); CO2 Tension 42.5 mmHg (35.0-45.0); Calcium, Ionized (arterial) 1.24 mmol/L (1.12-1.30); Carboxyhemoglobin (COHb) 0.3 gm% (0.0-3.0); Hemoglobin (Hb) 11.1 g/dL (14.0-18.0); O2 Tension (PaO2), arterial 344.3 mmHg (> 80.0); Potassium - ABG Lab 4.85 mmol/L (3.70-5.30); pH, Arterial 7.34 (7.35-7.45)
[2020-12-18 14:42] LABS: Actual Bicarbonate (HCO3a) 18.7 mEq/L (22-28); Analyzer IN Cardio OR; Base Excess (BEa) -6.1 mEq/L (-2.0 to +3.0); CO2 Tension 34.1 mmHg (35.0-45.0); Calcium, Ionized (arterial) 1.06 mmol/L (1.12-1.30); Carboxyhemoglobin (COHb) 0.3 gm% (0.0-3.0); Hemoglobin (Hb) 10.9 g/dL (14.0-18.0); O2 Tension (PaO2), arterial 250.4 mmHg (> 80.0); Potassium - ABG Lab 3.57 mmol/L (3.70-5.30); pH, Arterial 7.36 (7.35-7.45)
[2020-12-18 14:43] LABS: Actual Bicarbonate (HCO3a) 20.6 mEq/L (22-28); Analyzer IN Cardio OR; Base Excess (BEa) -6.2 mEq/L (-2.0 to +3.0); CO2 Tension 45.5 mmHg (35.0-45.0); Calcium, Ionized (arterial) 1.06 mmol/L (1.12-1.30); Carboxyhemoglobin (COHb) 0.2 gm% (0.0-3.0); O2 Tension (PaO2), arterial 288.9 mmHg (> 80.0); Potassium - ABG Lab 3.34 mmol/L (3.70-5.30); pH, Arterial 7.27 (7.35-7.45)
[2020-12-18 14:43] LABS: Puncture Site Arterial Line
[2020-12-18 14:44] LABS: Puncture Site Arterial Line
[2020-12-18 14:44] LABS: Puncture Site Arterial Line
[2020-12-18 14:45] LABS: Puncture Site Arterial Line
[2020-12-18 14:46] LABS: Puncture Site Arterial Line
[2020-12-18 14:46] LABS: Puncture Site Arterial Line
--- NOTE | 2020-12-19 11:56 | DIS ---
DATE OF ADMISSION: 12/12/2020 DATE OF DISCHARGE: 12/17/2020 DIAGNOSES: 1. Coronary artery disease. 2. Hypertension. 3. Dyslipidemia. PROCEDURES: Coronary artery bypass grafting x3, left internal mammary artery to left anterior descending, saphenous vein graft to obtuse margin and right coronary artery. DESCRIPTION OF HOSPITAL STAY: Mr. Kang was electively admitted from the [facility] after undergoing elective cardiac catheterization. He was found to have critical left main disease. He underwent coronary artery bypass grafting as above on 12/13. Postoperatively, he did well. He had no rhythm problems. At the time of discharge, he is ambulatory, tolerating regular diet, having good bowel and bladder function. Incisions are clean, dry without evidence of infection. DISCHARGE MEDICATIONS: 1. Aspirin 325 mg q. day. 2. Pravastatin 20 mg q. day. 3. Toprol-XL 100 mg q. day. 4. Zestril 2.5 mg q. day. 5. Tramadol 50 mg q.6h p.r.n. Followup is with me in 2 weeks, and Dr. Morrissey in a month. Job ID: [id number]
--- NOTE | 2020-12-23 19:34 | EKG ---
Test Reason : POST CABG Blood Pressure : / mmHG Vent. Rate : 058 BPM Atrial Rate : 058 BPM P-R Int : 142 ms QRS Dur : 106 ms QT Int : 484 ms P-R-T Axes : 054 -25 119 degrees QTc Int : 475 ms Sinus bradycardia Minimal voltage criteria for LVH, may be normal variant T wave abnormality, consider lateral ischemia Abnormal ECG No previous ECGs available Confirmed by KRISTIN GUPTA, STARLA ([id number] on 12/23/2020 7:34:14 PM Referred By: ROB Confirmed By:STARLA FOSTER MD
== END 2020-12-17 11:45 | disposition home or self-care (01) | DRG 236 ==
LOC: 2NO 10:02 → CCU 12-13 06:58 → 2NO 12-14 14:57
PROVIDERS: ADMIT Internal Medicine Cardiovascular Disease; ATTEND Internal Medicine Cardiovascular Disease
PROC: 021109W Bypass Coronary Artery, Two Arteries from Aorta with Autologous Venous Tissue, Open Approach (ICD-10-PCS; principal; 2020-12-13)
PROC: 02100Z9 Bypass Coronary Artery, One Artery from Left Internal Mammary, Open Approach (ICD-10-PCS; 2020-12-13)
PROC: 06BQ4ZZ Excision of Left Saphenous Vein, Percutaneous Endoscopic Approach (ICD-10-PCS; 2020-12-13)
PROC: 5A1221Z Performance of Cardiac Output, Continuous (ICD-10-PCS; 2020-12-13)
DX: I25.10 Atherosclerotic heart disease of native coronary artery without angina pectoris (principal); Z20.822 Contact with and (suspected) exposure to COVID-19; I10 Essential (primary) hypertension; E78.5 Hyperlipidemia, unspecified; I48.0 Paroxysmal atrial fibrillation; I25.5 Ischemic cardiomyopathy; Z79.899 Other long term (current) drug therapy; Z79.82 Long term (current) use of aspirin; Z79.1 Long term (current) use of non-steroidal anti-inflammatories (NSAID)
CPT/HCPCS: 36415; 36416; 71045; 80048; 82805; 82947; 83036; 85025; 85610; 85730; 86850; 86900; 86901; 87635; 93005; 93010; 93798; 94150; 97139; J0171; J0690; J1100; J1642; J1644; J1815; J1885; J2001; J2150; J2250; J2405; J2440; J2704; J2720; J3010; J3370; J3475; J3480; P9045; Q0162; S0017; S0020; S0028; U0003; U0005

== ENCOUNTER 2021-01-30 01:48 | Inpatient (IN) | payer MEDICARE ==
[2021-01-30 02:28] LABS: #Basophils 0.1 thou/uL (0.0-0.2); #Eosinphils 0.4 thou/uL (0.0-0.7); #Lymphocytes 1.4 thou/uL (1.20-3.40); #Monocytes 0.9 thou/uL (0.11-0.59); #Neutrophils 5.9 thou/uL (1.40-6.50); %Basophils 1.3 % (0.0-1.0); %Eosinophils 4.6 % (0.0-10.0); %Monocytes 10.1 % (0.0-10.0); %Neutrophils 68.1 % (42.0-75.0); Hemoglobin 14.4 g/dL (14.0-18.0); Mean Corpuscular HGB CONC 32.6 g/dL (32.0-36.0); Mean Corpuscular Hemoglobin 30.8 pg (27.0-31.0); Mean Corpuscular Volume 94.5 fL (78.0-98.0); Mean Platelet Volume 9.5 fL (7.4-10.4); Platelet Count 195 thou/uL (130-400); Red Blood Cell (RBC) Count 4.67 mill/uL (4.70-6.10); White Blood Cell (WBC) Count 8.6 thou/uL (4.8-10.8)
[2021-01-30 02:49] LABS: ALT (SGPT) 18 U/L (8-55); AST (SGOT) 17 U/L (5-34); Albumin 4.2 g/dL (3.4-4.8); Alkaline Phosphatase 115 U/L (40-110); Anion Gap 15 mmol/L (10-20); BUN (Urea Nitrogen) 21 mg/dL (8.4-25.7); Bilirubin, Total 0.3 mg/dL (0.2-1.2); Calc. Creatinine Clearance 0 mL/min (70-130); Calcium 9.3 mg/dL (7.8-10.44); Carbon Dioxide 24 mmol/L (23-31); Chloride 102 mmol/L (98-107); Globulin 3.4 g/dL (2.4-3.5); Glucose 106 mg/dL (80-115); Potassium 4.2 mmol/L (3.5-5.1); Protein, Total 7.6 g/dL (5.8-8.1); Sodium 137 mmol/L (136-145)
[2021-01-30 06:20] LABS: Troponin I 0.028 ng/mL (< 0.028)
--- NOTE | 2021-01-30 08:02 | RAD ---
EXAM: Single view of the chest HISTORY: Chest pain COMPARISON: 12/14/2020 FINDINGS: Single view of the chest shows an enlarged but stable cardiomediastinal silhouette. The pa tient is status post sternotomy. There is no evidence of consolidation, mass, or pleural effusion. Degenerative changes are seen in the spine and shoulders. IMPRESSION: No evidence of acute cardiopulmonary disease
[2021-01-30 08:40] LABS: Troponin I 0.035 ng/mL (< 0.028)
--- NOTE | 2021-01-30 11:15 | PDOC.HHP ---
Hospitalist HPI Near syncope and weakness History of Present Illness: This is a 70-year-old male with a history of a three-vessel CABG done 1-1/2 months ago who presents to the emergency room with multiple episodes of near syncope, heart pounding, and generalized weakness. This almost always happens when he is laying down and rolls over. It is not consistent though. Patient is having a little bit of very lightheadedness while he sitting upright now. Patient did have some near syncope while at cardiac rehab and has been evaluated by Dr. Morrissey in the clinic. He has been having recurrent episodes over the last week and got worse today so he came into the emergency room. Symptoms are not present the majority of the time. He does not get the symptoms when he stands up or walks. No vision or hearing problems with them. ED Course: In the emergency room the patient was found to be bradycardic into the 40s. He had nonspecific EKG changes and negative troponin. He was not having any chest pain. He was not given any medications nor did he have any intervention in the emergency room. He is being put in observation for cardiac evaluation. Allergies/Adverse Reactions: Allergy/AdvReac Type Severity Reaction Status Date / Time No Known Allergies Allergy Verified 12/12/20 10:19 Home Medications: Medication Instructions Recorded Confirmed Type Pravastatin Sodium 20 mg PO DAILY 12/12/20 01/30/21 History Aspirin [Ecotrin Regular Strength] 325 mg PO DAILY #120 tab 12/17/20 01/30/21 Rx Lisinopril [Zestril] 2.5 mg PO DAILY #90 tab 12/17/20 01/30/21 Rx Metoprolol Succinate [Toprol XL] 100 mg PO DAILY #90 tab 12/17/20 01/30/21 Rx Past History: Primary care physician: Tory Hidalgo MD Past medical history: 1. Coronary artery disease status post CABG 2. Hypertension 3. Hyperlipidemia Past surgical history: 1. Coronary artery bypass grafting x3 vessels in [place] [address] Hal Orona. Family medical history: Both father and mother had bypass surgery but he does not know how old they were at the time. They are both now . Social history: Patient denies tobacco alcohol or illicit drug use. He is a . He is retired and likes playing golf. He is a full code. Should he be incapacitated his son Edward Jorge Luis would be his medical decision-maker. Hospitalist HPI OSITO Constitutional: denies: fever, chills Eyes: denies: vision change, redness ENT: denies: ear pain (No hearing loss), nose discharge, nose congestion, throat pain, throat swelling Respiratory: denies: cough, shortness of breath, SOB with excertion, sputum, wheezing Cardiovascular: reports: light headedness. denies: chest pain, orthopnea, paroxysmal noc. dyspnea, edema Gastrointestinal: reports: nausea (Had some nausea with his episode earlier this morning but none now). denies: vomiting, abdominal pain, diarrhea, constipation Genitourinary: denies: dysuria, hematuria Musculoskeletal: denies: neck pain, shoulder pain, back pain Skin: denies: rash, lesions Neurological: denies: weakness (No focal), numbness, incoordination, change in speech, confusion, seizures Hospitalist Exam General Appearance: NAD, awake alert Eye: PERRL, anicteric sclera ENT: normocephalic atraumatic, no oropharyngeal lesions, moist mucosa Neck: supple, symmetric, no JVD, no thyromegaly, no lymphadenopathy Heart: RRR, no murmur, no gallops, no rubs, normal peripheral pulses Heart - other findings: Sternotomy healed well Respiratory: no wheezes, no ronchi, normal chest expansion, no tachypnea Respiratory - other findings: Few basilar crackles on the left consistent with recent CABG Gastrointestinal: soft, non-tender, non-distended, normal bowel sounds, no palpable masses, no hepatomegaly, no splenomegaly, no guarding, no rigidity Extremities: no cyanosis, no clubbing, no edema Skin: normal turgor, no lesions, no rashes Neurological: cranial nerve grossly intact, normal sensation to touch, no weakness, no focal deficits, no new deficit Neurological - other findings: Negative Massimo-Hallpike maneuver on both sides, HINTS negative Musculoskeletal: normal tone, normal strength, no muscle wasting Psychiatric: normal affect, normal behavior, A&O x 3 Hospitalist Results Result Diagrams: 01/31/21 06:46 01/31/21 06:46 Lab results: Laboratory Last Values WBC 8.6 thou/uL (4.8-10.8) 01/30/21 02:19 RBC 4.67 mill/uL (4.70-6.10) L 01/30/21 02:19 Hgb 14.4 g/dL (14.0-18.0) 01/30/21 02:19 Hct 44.1 % (42.0-52.0) 01/30/21 02:19 MCV 94.5 fL (78.0-98.0) 01/30/21 02:19 MCH 30.8 pg (27.0-31.0) 01/30/21 02:19 MCHC 32.6 g/dL (32.0-36.0) 01/30/21 02:19 RDW 13.0 % (11.5-14.5) 01/30/21 02:19 Plt Count 195 thou/uL (130-400) 01/30/21 02:19 MPV 9.5 fL (7.4-10.4) 01/30/21 02:19 Neutrophils % 68.1 % (42.0-75.0) 01/30/21 02:19 Lymphocytes % 16.0 % (21.0-51.0) L 01/30/21 02:19 Monocytes % 10.1 % (0.0-10.0) H 01/30/21 02:19 Eosinophils % 4.6 % (0.0-10.0) 01/30/21 02:19 Basophils % 1.3 % (0.0-1.0) H 01/30/21 02:19 Neutrophils # 5.9 thou/uL (1.40-6.50) 01/30/21 02:19 Lymphocytes # 1.4 thou/uL (1.20-3.40) 01/30/21 02:19 Monocytes # 0.9 thou/uL (0.11-0.59) H 01/30/21 02:19 Eosinophils # 0.4 thou/uL (0.0-0.7) 01/30/21 02:19 Basophils # 0.1 thou/uL (0.0-0.2) 01/30/21 02:19 Sodium 137 mmol/L (136-145) 01/30/21 02:19 Potassium 4.2 mmol/L (3.5-5.1) 01/30/21 02:19 Chloride 102 mmol/L (98-107) 01/30/21 02:19 Carbon Dioxide 24 mmol/L (23-31) 01/30/21 02:19 Anion Gap 15 mmol/L (10-20) 01/30/21 02:19 BUN 21 mg/dL (8.4-25.7) 01/30/21 02:19 Creatinine 1.35 mg/dL (0.7-1.3) H 01/30/21 02:19 Estimated GFR (MDRD) 53 01/30/21 02:19 Glucose 106 mg/dL (80-115) 01/30/21 02:19 Calcium 9.3 mg/dL (7.8-10.44) 01/30/21 02:19 Total Bilirubin 0.3 mg/dL (0.2-1.2) 01/30/21 02:19 AST 17 U/L (5-34) 01/30/21 02:19 ALT 18 U/L (8-55) 01/30/21 02:19 Alkaline Phosphatase 115 U/L (40-110) H 01/30/21 02:19 Troponin I 0.035 ng/mL (< 0.028) H 01/30/21 08:05 Serum Total Protein 7.6 g/dL (5.8-8.1) 01/30/21 02:19 Albumin 4.2 g/dL (3.4-4.8) 01/30/21 02:19 Globulin 3.4 g/dL (2.4-3.5) 01/30/21 02:19 Albumin/Globulin Ratio 1.2 g/dL (1.2-2.2) 01/30/21 02:19 Chest x-ray Status: image reviewed by me, report reviewed by me Additional Comments: EXAM: Single view of the chest HISTORY: Chest pain COMPARISON: 12/14/2020 FINDINGS: Single view of the chest shows an enlarged but stable cardiomediast inal silhouette. The patient is status post sternotomy. There is no evidence of consolidation, mass, or pleural effusion. Degenerative changes are seen in the spine and shoulders. IMPRESSION: No evidence of acute cardiopulmonary disease EKG Status: report reviewed by me Additional Comments: 12 lead EKG shows normal sinus rhythm, Rate (beats per minute): 49, with no ectopics, Conduction normal, ST segments normal, T waves, flattened, Leads affected: V4, Leads affected: V5, Leads affected: V6, Freeman normal, Clinical impression:, non-specific EKG. Hospitalist H&P A/P Plan: Presyncopal episodes with palpitations We will put patient in observation and watch on telemetry monitoring overnight We will trend troponins and make sure they remain negative We will consult cardiology: I spoke with Dr. Goodrich and he stated that he would inform Dr. Jimenez the patient was in the hospital Concern for possibility of stroke with his post CABG A. fib. We will check an MRI of the brain. Massimo-Hallpike maneuver negative so doubt benign positional vertigo. Sinus bradycardia Symptomatic Cardiology consulted for recommendations Telemetry monitoring Hold metoprolol XL History of post CABG atrial fibrillation Off amiodarone for some time now Watch on telemetry and may need event monitor Coronary artery disease status post CABG No evidence of acute coronary syndrome at this point We will resume patient's home medications Hypertension Resume patient's home medications We will give as needed hydralazine IV Hyperlipidemia Resume patient's home medications DVT prophylaxis: Lovenox subcu and SCDs while in bed GI prophylaxis: Pepcid twice a day CODE STATUS: I did discuss this with the patient, he is a full code. Should he be incapacitated his son Ralph Kang would be his medical decision-maker.
[2021-01-30] MEDS ORDERED: Ondansetron PF 4 MG/2 ML Vial IVP PRN (11:25)
[2021-01-30] MEDS ORDERED: Ondansetron ODT 4 MG TAB PO PRN (11:25)
[2021-01-30] MEDS ORDERED: Acetaminophen 325 MG TAB PO PRN (11:25)
[2021-01-30] MEDS ORDERED: Guaifenesin DM 100-10/5 ML UDCUP PO PRN (11:25)
[2021-01-30] MEDS ORDERED: Senokot S 8.6-50 MG TAB PO PRN (11:25)
[2021-01-30] MEDS ORDERED: hydrALAZINE 20 MG/ML VIAL SLOW IVP PRN (11:25)
[2021-01-30] MEDS ORDERED: Acetaminophen 650 MG Suppository PR PRN (11:25)
[2021-01-30 12:34] LABS: SARS-CoV-2 PCR by NAA Not Detected (NotDetected)
[2021-01-30 13:43] VITALS: BMI 28.7
[2021-01-30 15:46] LABS: Troponin I 0.024 ng/mL (< 0.028)
--- NOTE | 2021-01-30 17:50 | CON ---
DATE OF CONSULTATION: 01/30/2021 REASON FOR CONSULTATION: Lightheadedness and bradycardia. HISTORY OF PRESENT ILLNESS: Mr. Kang is a pleasant 70-year-old gentleman, who comes to the hospital for dizziness and lightheadedness. He had a bypass about a month and a half ago. He developed postoperative atrial fibrillation, was given amiodarone and metoprolol increasing doses as his heart rate was very difficult to control. He went home actually on 100 mg of Toprol-XL and amiodarone load. He eventually presented to my office about a month later with lightheadedness and bradycardia, mid to low 40s. At that point, we stopped his amiodarone, kept him on metoprolol. He never really got any better, and eventually, the plan was to stop the metoprolol if he did not improve. However, he ended up in the hospital as he felt he was going to pass out. He denies any chest pain, tightness, or pressure. No shortness of breath. PAST MEDICAL HISTORY: 1. Coronary artery disease, status post CABG. 2. Hypertension. 3. Hyperlipidemia. PAST SURGICAL HISTORY: CABG x3 in November of this year. SOCIAL HISTORY: No alcohol, tobacco, or drugs. FAMILY HISTORY: Both parents had bypass surgery. OUTPATIENT MEDICATIONS: 1. Naproxen p.r.n. 2. Pravastatin 20 mg a day. 3. Aspirin 325 a day. 4. Lisinopril 2.5 mg a day. 5. Metoprolol succinate 100 mg a day. 6. Tramadol 50 mg q.6 hours p.r.n. pain. ALLERGIES: NO KNOWN DRUG ALLERGIES. REVIEW OF SYSTEMS: A 12-point review of systems was done and all negative unless stated in the history of present illness. PHYSICAL EXAMINATION: VITAL SIGNS: Temperature 98.5, pulse 48, respiratory rate 17, saturating 97% on room air, blood pressure 144/66. GENERAL: Awake, alert, oriented x3, in no distress. HEENT: Normocephalic, atraumatic. NECK: Supple. LUNGS: Clear. CARDIOVASCULAR: S1 and S2. No S3 or S4. No murmurs. No rubs. ABDOMEN: Soft. Positive bowel sounds. EXTREMITIES: No edema. SKIN: Warm and dry. LABORATORY DATA: Laboratory work was reviewed. White count of 8.6, hemoglobin of 14, hematocrit of 44, platelet count of 195. Chemistry was unremarkable except for creatinine 1.35. Troponin was negative x4. COVID-19 PCR serologies were not detected. Chest x-ray was reviewed. ASSESSMENT AND PLAN: 1. Dizziness. 2. Bradycardia, possibly symptomatic. 3. Exercise intolerance. 4. Coronary artery disease, stable. No acute coronary syndrome. 5. Postoperative atrial fibrillation. No evidence of recurrence. PLAN: 1. Stop all AV husam blocking agents. these high doses to control his heart rate initially when he had postop atrial fibrillation. This may be related to him not needing any beta sameer or anymore. If his heart rate does not improve after 2 days of no beta sameer, he may be a candidate for pacemaker. 2. Agree with MRI of the brain to make sure that would cause any injury to his brain that would cause him to have central dizziness. 3. We will get an echocardiogram to make sure that his LV function is unchanged or hopefully even better. 4. Continue telemetry monitoring for now. Thank you for letting us to participate in the care of your patient. We will follow. Job ID: [id number]
[2021-01-30] MEDS: Famotidine 20 MG TAB PO SCH (20:30)
[2021-01-31 07:19] LABS: Anion Gap 12 mmol/L (10-20); BUN (Urea Nitrogen) 17 mg/dL (8.4-25.7); Calc. Creatinine Clearance 73 mL/min (70-130); Calcium 8.9 mg/dL (7.8-10.44); Carbon Dioxide 23 mmol/L (23-31); Chloride 104 mmol/L (98-107); Glucose 103 mg/dL (80-115); Potassium 4.1 mmol/L (3.5-5.1); Sodium 135 mmol/L (136-145)
[2021-01-31 07:26] LABS: #Eosinphils 0.3 thou/uL (0.0-0.7); #Lymphocytes 1.3 thou/uL (1.20-3.40); #Monocytes 0.8 thou/uL (0.11-0.59); #Neutrophils 5.3 thou/uL (1.40-6.50); %Basophils 0.5 % (0.0-1.0); %Eosinophils 4.1 % (0.0-10.0); %Lymphocytes 16.5 % (21.0-51.0); %Monocytes 10.1 % (0.0-10.0); %Neutrophils 68.8 % (42.0-75.0); Hemoglobin 13.6 g/dL (14.0-18.0); Mean Corpuscular HGB CONC 32.1 g/dL (32.0-36.0); Mean Corpuscular Hemoglobin 30.7 pg (27.0-31.0); Mean Corpuscular Volume 95.7 fL (78.0-98.0); Mean Platelet Volume 9.7 fL (7.4-10.4); Platelet Count 183 thou/uL (130-400); RBC Distribution Width 13.2 % (11.5-14.5); Red Blood Cell (RBC) Count 4.42 mill/uL (4.70-6.10); White Blood Cell (WBC) Count 7.8 thou/uL (4.8-10.8)
--- NOTE | 2021-01-31 09:19 | MRI ---
Exam: Brain MRI without contrast HISTORY: Evaluate for possible stroke COMPARISON: None FINDINGS: Calvarial marrow signal intensity: Appropriate T1 signal Gradient echo sequence: No hemorrhage Brain parenchyma: No mass, mass effect or midline shift. Brain volume, age-appropriate. Cortical brink-white matter differentiation: Preserved Restricted diffusion: Central arterial flow voids are maintained. Absent restricted diffusion White matter signal intensities: T2, FLAIR white matter hyperintensities due to chronic small vessel ischemic changes Sinuses: Adequate aeration of the paranasal sinuses and mastoid air cells. IMPRESSION: Absent restricted diffusion. No acute infarct.
[2021-01-31] MEDS: Simvastatin 5 MG TAB PO SCH (11:00)
[2021-01-31] MEDS: Famotidine 20 MG TAB PO SCH ×2 (11:01→21:35)
[2021-01-31] MEDS: Lisinopril 2.5 MG TAB PO SCH (11:01)
[2021-01-31] MEDS: Aspirin 325 mg Enteric Coated Tablet PO SCH (11:02)
[2021-01-31] MEDS: Enoxaparin Sodium 40 MG/0.4 ML SYRINGE SC SCH (11:02)
[2021-01-31] MEDS ORDERED: Prevnar 13-Val Conj/PF 0.5 ML SYRINGE IM ONE (14:00)
--- NOTE | 2021-01-31 18:16 | PDOC.HOSPP ---
- Subjective Encounter Date: 01/31/21 Encounter Time: 13:00 Subjective: no dizziness or sob now, had felt dizzy last evening is ambulating to bedside - Objective Vital Signs & Weight: Vital Signs (12 hours) Temp Pulse Resp BP Pulse Ox 01/31/21 17:48 97.8 F 52 L 16 148/80 H 94 L 01/31/21 11:49 97.7 F 52 L 19 140/63 93 L 01/31/21 07:30 97.8 F 49 L 14 137/77 96 Weight Weight 178 lb I&O: 01/30/21 01/31/21 02/01/21 06:59 06:59 06:59 Intake Total 720 Output Total 550 Balance 170 Result Diagrams: 01/31/21 06:46 01/31/21 06:46 Hospitalist ROS - Medication Medications: Active Medications Generic Name Dose Route Start Last Admin Trade Name Freq PRN Reason Stop Dose Admin Aspirin 325 mg 01/31/21 09:00 01/31/21 11:02 Aspirin 325 Mg Enteric Coated Tablet PO 325 mg DAILY ANDREWS Administration Enoxaparin Sodium 40 mg 01/31/21 09:00 01/31/21 11:02 Enoxaparin Sodium 40 Mg/0.4 Ml Syringe SC 40 mg 0900 ANDREWS Administration Famotidine 20 mg 01/30/21 21:00 01/31/21 11:01 Famotidine 20 Mg Tab PO 20 mg BID ANDREWS Administration Lisinopril 2.5 mg 01/31/21 09:00 01/31/21 11:01 Lisinopril 2.5 Mg Tab PO 2.5 mg DAILY ANDREWS Administration Simvastatin 10 mg 01/31/21 09:00 01/31/21 11:00 Simvastatin 5 Mg Tab PO 10 mg DAILY ANDREWS Administration Hospitalist Exam Vitals: Vital Signs (12 hours) Temp Pulse Resp BP Pulse Ox 01/31/21 17:48 97.8 F 52 L 16 148/80 H 94 L 01/31/21 11:49 97.7 F 52 L 19 140/63 93 L 01/31/21 07:30 97.8 F 49 L 14 137/77 96 Weight Weight 178 lb General Appearance: NAD, awake alert Eye: PERRL, anicteric sclera ENT: no oropharyngeal lesions, moist mucosa Neck: supple, no JVD Heart: RRR, no murmur Respiratory: no wheezes, no rales Gastrointestinal: soft, non-tender, non-distended, normal bowel sounds Extremities: no cyanosis, no edema Neurological: cranial nerve grossly intact, no focal deficits Psychiatric: normal affect, A&O x 3 Hosp A/P (1) Symptomatic bradycardia Code(s): R00.1 - BRADYCARDIA, UNSPECIFIED Status: Acute (2) Near syncope Status: Acute (3) Paroxysmal A-fib Code(s): I48.0 - PAROXYSMAL ATRIAL FIBRILLATION Status: Resolved (4) CAD (coronary artery disease) Code(s): I25.10 - ATHSCL HEART DISEASE OF [place] CORONARY ARTERY W/O ANG PCTRS Status: Chronic Qualifiers: Coronary Disease-Associated Artery/Lesion type: bypass graft [place] vs. transplanted heart: [place] heart Associated angina: without angina Qualified Code(s): I25.810 - Atherosclerosis of coronary artery bypass graft(s) without angina pectoris (5) Dyslipidemia Code(s): E78.5 - HYPERLIPIDEMIA, UNSPECIFIED Status: Chronic - Plan is off toprol, was off amiodarone last week, heart rates into 50's now will observe for another 24hrs as he was still dizzy last evening continue asp, lisinopril and zocor hemostable h/o post cabg afib in sinus now to ambulate as tolerated dc plan in am if cleared by cardio
--- NOTE | 2021-01-31 18:51 | PDOC.CPN ---
- Subjective Date: 01/31/21 Time: 18:48 Interval history: He is feeling much better. He walked around with PT and felt well. His HR has been in the 50's and goes up slightly with exertion. No more dizziness. - Review of Systems General: denies: fever/chills, weight/appetite/sleep changes, night sweats, fatigue Respiratory: denies: cough, congestion, shortness of breath, exercise intolerance Cardiovascular: denies: chest pain, palpitation, edema, paroxysmal nocturnal dyspnea, orthopnea Gastrointestinal: denies: nausea, vomiting, diarrhea, constipation, abd pain, GI bleeding Musculoskeletal: denies: pain, tenderness, stiffness, swelling, arthritis/ar thralgias Neurological: denies: numbness, syncope, seizure, weakness - Objective Allergies/Adverse Reactions: Allergies Allergy/AdvReac Type Severity Reaction Status Date / Time No Known Allergies Allergy Verified 12/12/20 10:19 Visit Medications: Current Medications Acetaminophen (Acetaminophen 325 Mg Tab) 650 mg PO Q4H PRN PRN Reason: Headache/Fever/Mild Pain (1-3) Acetaminophen (Acetaminophen 650 Mg Suppository) 650 mg [place] Q4H PRN PRN Reason: Headache/Fever/Mild Pain (1-3) Aspirin (Aspirin 325 Mg Enteric Coated Tablet) 325 mg PO DAILY [facility] Last Admin: 01/31/21 11:02 Dose: 325 mg Documented by: Enoxaparin Sodium (Enoxaparin Sodium 40 Mg/0.4 Ml Syringe) 40 mg SC 0900 [facility] Last Admin: 01/31/21 11:02 Dose: 40 mg Documented by: Famotidine (Famotidine 20 Mg Tab) 20 mg PO BID [facility] Last Admin: 01/31/21 11:01 Dose: 20 mg Documented by: Guaifenesin/Dextromethorphan (Guaifenesin Dm 100-10/5 Ml Udcup) 15 ml PO Q4H PRN PRN Reason: Cough Hydralazine HCl (Hydralazine 20 Mg/Ml Vial) 10 mg SLOW IVP Q4H PRN PRN Reason: SBP Greater Than 180 Lisinopril (Lisinopril 2.5 Mg Tab) 2.5 mg PO DAILY [facility] Last Admin: 01/31/21 11:01 Dose: 2.5 mg Documented by: Ondansetron HCl (Ondansetron Odt 4 Mg Tab) 4 mg PO Q6H PRN PRN Reason: Nausea/Vomiting Ondansetron HCl (Ondansetron Pf 4 Mg/2 Ml Vial) 4 mg IVP Q6H PRN PRN Reason: Nausea/Vomiting Senna/Docusate Sodium (Senokot S 8.6-50 Mg Tab) 2 tab PO BID PRN PRN Reason: Constipation Simvastatin (Simvastatin 5 Mg Tab) 10 mg PO DAILY [facility]RE[facility] Last Admin: 01/31/21 11:00 Dose: 10 mg Documented by: Vital Signs & Weight: Vital Signs Temp Pulse Resp BP Pulse Ox 01/31/21 17:48 97.8 F 52 L 16 148/80 H 94 L 01/31/21 11:49 97.7 F 52 L 19 140/63 93 L 01/31/21 07:30 97.8 F 49 L 14 137/77 96 Weight 178 lb - Physical Exam General: alert & oriented x3 HEENT: mucus membranes moist Neck: supple neck Cardiac: regular rate and rhythm, bradycardia Lungs: normal breath sounds Neuro: grossly intact Abdomen: active bowel sounds Extremities: no edema Skin: clear Musculoskeletal: no pain - Labs Result Diagrams: 01/31/21 06:46 01/31/21 06:46 Troponin/CKMB Troponin I 0.024 ng/mL (< 0.028) 01/30/21 15:20 - Telemetry Sinus rhythms and dysrhythmias: sinus bradycardia (< 50 bpm) - Assessment/Plan Assessment/Plan: 1. Symptomatic bradycardia. 2. CAD, stable, no ACS 3. S/p CABG 6 weeks ago 4. post op afib. No recurrence. PLAN: - Continue tele monitoring. - Hold any AV husam blocking agents indefinitely.
[2021-02-01 05:51] LABS: Anion Gap 14 mmol/L (10-20); BUN (Urea Nitrogen) 15 mg/dL (8.4-25.7); Calc. Creatinine Clearance 62 mL/min (70-130); Calcium 9.4 mg/dL (7.8-10.44); Carbon Dioxide 25 mmol/L (23-31); Chloride 102 mmol/L (98-107); Glucose 93 mg/dL (80-115); Potassium 4.5 mmol/L (3.5-5.1); Sodium 136 mmol/L (136-145)
[2021-02-01] MEDS: Famotidine 20 MG TAB PO SCH (09:29)
[2021-02-01] MEDS: Enoxaparin Sodium 40 MG/0.4 ML SYRINGE SC SCH (09:29)
[2021-02-01] MEDS: Aspirin 325 mg Enteric Coated Tablet PO SCH (09:29)
[2021-02-01] MEDS: Simvastatin 5 MG TAB PO SCH (09:30)
[2021-02-01] MEDS: Lisinopril 2.5 MG TAB PO SCH (10:30)
--- NOTE | 2021-02-01 15:39 | PDOC.CPN ---
- Subjective Date: 02/01/21 Time: 15:38 Interval history: Doing better. Had a very brief episode of lightheadedness that lasted probably 2 or 3 seconds. No verito arrhythmias. likely inner ear problem. - Review of Systems General: denies: fever/chills, weight/appetite/sleep changes, night sweats, fatigue Respiratory: denies: cough, congestion, shortness of breath, exercise intolerance Cardiovascular: denies: chest pain, palpitation, edema, paroxysmal nocturnal dyspnea, orthopnea Gastrointestinal: denies: nausea, vomiting, diarrhea, constipation, abd pain, GI bleeding Musculoskeletal: denies: pain, tenderness, stiffness, swelling, arthritis/arthralgias Neurological: denies: numbness, syncope, seizure, weakness - Objective Allergies/Adverse Reactions: Allergies Allergy/AdvReac Type Severity Reaction Status Date / Time No Known Allergies Allergy Verified 12/12/20 10:19 Visit Medications: Current Medications Acetaminophen (Acetaminophen 325 Mg Tab) 650 mg PO Q4H PRN PRN Reason: Headache/Fever/Mild Pain (1-3) Acetaminophen (Acetaminophen 650 Mg Suppository) 650 mg [place] Q4H PRN PRN Reason: Headache/Fever/Mild Pain (1-3) Aspirin (Aspirin 325 Mg Enteric Coated Tablet) 325 mg PO DAILY [facility] Last Admin: 02/01/21 09:29 Dose: 325 mg Documented by: Enoxaparin Sodium (Enoxaparin Sodium 40 Mg/0.4 Ml Syringe) 40 mg SC 0900 [facility] Last Admin: 02/01/21 09:29 Dose: 40 mg Documented by: Famotidine (Famotidine 20 Mg Tab) 20 mg PO BID [facility] Last Admin: 02/01/21 09:29 Dose: 20 mg Documented by: Guaifenesin/Dextromethorphan (Guaifenesin Dm 100-10/5 Ml Udcup) 15 ml PO Q4H PRN PRN Reason: Cough Hydralazine HCl (Hydralazine 20 Mg/Ml Vial) 10 mg SLOW IVP Q4H PRN PRN Reason: SBP Greater Than 180 Lisinopril (Lisinopril 2.5 Mg Tab) 2.5 mg PO DAILY [facility] Last Admin: 02/01/21 10:30 Dose: 2.5 mg Documented by: Ondansetron HCl (Ondansetron Odt 4 Mg Tab) 4 mg PO Q6H PRN PRN Reason: Nausea/Vomiting Ondansetron HCl (Ondansetron Pf 4 Mg/2 Ml Vial) 4 mg IVP Q6H PRN PRN Reason: Nausea/Vomiting Senna/Docusate Sodium (Senokot S 8.6-50 Mg Tab) 2 tab PO BID PRN PRN Reason: Constipation Simvastatin (Simvastatin 5 Mg Tab) 10 mg PO DAILY [facility]RE[facility] Last Admin: 02/01/21 09:30 Dose: 10 mg Documented by: Vital Signs & Weight: Vital Signs Temp Pulse Resp BP BP BP Pulse Ox 02/01/21 11:41 97.6 F 52 L 14 133/67 95 02/01/21 10:30 57 L 02/01/21 09:31 96 02/01/21 07:40 98.5 F 57 L 18 128/71 96 02/01/21 04:00 98.2 F 50 L 18 114/57 L 92 L Weight 178 lb - Physical Exam General: alert & oriented x3 HEENT: mucus membranes moist Neck: supple neck Cardiac: regular rate and rhythm Lungs: clear to auscultation Neuro: grossly intact Abdomen: active bowel sounds Extremities: no edema Skin: clear Musculoskeletal: no pain - Labs Result Diagrams: 01/31/21 06:46 02/01/21 05:06 Troponin/CKMB Troponin I 0.024 ng/mL (< 0.028) 01/30/21 15:20 - Telemetry Sinus rhythms and dysrhythmias: sinus bradycardia (< 50 bpm) - Assessment/Plan Assessment/Plan: 1. Symptomatic bradycardia. Resolved. 2. CAD, stable, no ACS 3. S/p CABG 6 weeks ago 4. post op afib. No recurrence. PLAN: - HR consistently in the mid 50's. - Asymptomatic now. May discharge home. - Follow up in 2 weeks. - Hold any AV husam blocking agents indefinitely.
[2021-02-01 16:08] VITALS: BP 179/77; TEMP 97.5
--- NOTE | 2021-02-01 16:20 | DIS ---
DATE OF ADMISSION: 01/31/2021 DATE OF DISCHARGE: 02/01/2021 DISCHARGE DISPOSITION: To home. PRIMARY DISCHARGE DIAGNOSES: Symptomatic bradycardia with dizziness, resolved. These lasts for few seconds, two or 3 seconds when he is lying down. Recent CABG done 6 weeks ago. Postop atrial fibrillation in sinus rhythm with no recurrence, dyslipidemia, hypertension. PROCEDURES DONE DURING HOSPITALIZATION: Chest x-ray done showed no acute cardiopulmonary abnormality. MRI brain without contrast showed no acute infarct. H and H 13 and 42, platelet count 183. BUN 15, creatinine 1.3. COVID-19 PCR was not detected on 01/30/2021. INPATIENT CONSULT: Dr. Morrissey for Cardiology. DISCHARGE MEDICATIONS: 1. Pravachol 20 mg p.o. daily. 2. Aspirin 325 mg p.o. daily. 3. Lisinopril 2.5 mg p.o. daily. DISCHARGE PLAN: The patient to follow up with Dr. Morrissey in 2 weeks. His primary care physician, Dr. Tory Hidalgo in 1 week. BRIEF COURSE DURING HOSPITALIZATION: The patient initially got admitted on the 30 of January with complaints of feeling dizzy and almost passing out kind of feeling when he is laying down. This happens for a few seconds. His initial heart rate was in the 40s. The patient was on Toprol-XL 100 mg daily, which was discontinued. Prior to this, he has had a followup with Dr. Morrissey and his amiodarone was discontinued. He has had significant history of CABG done for three vessels in November [address] Hal Orona. In view of this history, the patient was initially under observation and as the patient continued to have symptoms, he was switched to inpatient status. He has been able to ambulate well. Post discontinuation of Lopressor, his heart rate has been consistently above 50s. He is hemodynamically stable. He was evaluated by Dr. Morrissey for Cardiology. He will be shortly discharged home. Please note, I have seen and examined the patient on the day of discharge. Job ID: [id number]
--- NOTE | 2021-02-02 13:43 | EKG ---
Test Reason : Blood Pressure : / mmHG Vent. Rate : 049 BPM Atrial Rate : 049 BPM P-R Int : 156 ms QRS Dur : 086 ms QT Int : 488 ms P-R-T Axes : 053 002 119 degrees QTc Int : 440 ms Marked sinus bradycardia Abnormal ECG Confirmed by DAGOBERTO PARADA ([id number]), metropolitan editor RAMIN MCGILL ([id number] on 02/02/2021 1:43:29 PM Referred By: Confirmed By:DAGOBERTO PARADA
== END 2021-02-01 16:13 | disposition home or self-care (01) | DRG 310 ==
LOC: ERS 01:48 → ERHOLD 03:39 → 3SE 12:50 → OBSVTOIN 01-31 14:16
PROVIDERS: ADMIT Student in an Organized Health Care Education/Training Program; ATTEND Internal Medicine
DX: R00.1 Bradycardia, unspecified (principal); E78.00 Pure hypercholesterolemia, unspecified; I10 Essential (primary) hypertension; E78.5 Hyperlipidemia, unspecified; I48.91 Unspecified atrial fibrillation; Z20.822 Contact with and (suspected) exposure to COVID-19; Z95.1 Presence of aortocoronary bypass graft; Z79.899 Other long term (current) drug therapy; Z79.82 Long term (current) use of aspirin; I25.10 Atherosclerotic heart disease of native coronary artery without angina pectoris
CPT/HCPCS: 36415; 70551; 71045; 80048; 80053; 84484; 85025; 87635; 93005; 93306; J1650; U0003; U0005

== ENCOUNTER 2024-05-23 13:31 | Outpatient (CLI) | payer MEDICARE ==
[2024-05-23 15:00] LABS: Anion Gap 16 mmol/L (10-20); BUN (Urea Nitrogen) 23 mg/dL (8.4-25.7); Calc. Creatinine Clearance 0 mL/min (70-130); Calcium 9.4 mg/dL (7.8-10.44); Carbon Dioxide 24 mmol/L (23-31); Chloride 104 mmol/L (98-107); Estimated GFR 64; Glucose 96 mg/dL (83-110); Sodium 139 mmol/L (136-145)
== END 2024-05-23 13:32 | disposition home or self-care (01) ==
LOC: LABBT 13:31
PROVIDERS: ATTEND Internal Medicine Cardiovascular Disease
DX: Z01.812 Encounter for preprocedural laboratory examination (principal); I48.92 Unspecified atrial flutter
CPT/HCPCS: 80048